=== PATIENT | female | born 1990 | race Caucasian/White ===

== ENCOUNTER 2017-10-23 16:48 | Emergency (ER) | payer BC ==
[2017-10-23] MEDS ORDERED: KETOROLAC 30 MG/ML INJ ONE (17:49)
[2017-10-23 18:34] LABS: Urine Bacteria >50 /HPF (<20); Urine Culture Reflex Order REFLEXED; Urine Mucus 2+ /HPF (NONE SEEN); Urine RBC 20-50 /HPF (NONE SEEN)
[2017-10-23 18:34] LABS: Urine Blood 2+ (NEG); Urine Glucose NEGATIVE (NEG); Urine Protein 3+ (NEG)
[2017-10-23] MEDS ORDERED: ACETAMINOPHEN 500 MG TAB ONE (19:06)
--- NOTE | 2017-10-23 19:29 | EDPHYS ---
Physician Documentation [facility] Name: Tania Garcia Age: 27 yrs Sex: Female : 1990 Arrival Date: 10/23/2017 Time: 16:49 Bed 23 Private MD: Jeancarlos Jones ED Physician Leonard Vásquez HPI: 10/23 19:21 This 27 yrs old Female presents to ER via Ambulatory with complaints of gs Possible Kidney Stone. 19:21 The patient presents with flank pain, bilaterally, urinary symptoms, dysuria, gs hesitancy, urgency. Onset: The symptoms/episode began/occurred yesterday, and became worse and became persistent. Modifying factors: The symptoms are alleviated by nothing, the symptoms are aggravated by nothing. Associated signs and symptoms: Pertinent negatives: fever, vomiting. Severity of symptoms: At their worst the symptoms were moderate, in the emergency department the symptoms are unchanged. The patient has experienced similar episodes in the past, a few times. 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 - Social history:: The patient lives at home, Smoking status: unknown. ROS: 19:21 All other systems are negative. gs Exam: 19:21 Head/Face: Normocephalic, atraumatic. Eyes: Pupils equal round and reactive to light, gs extra-ocular motions intact. Lids and lashes normal. Conjunctiva and sclera are non-icteric and not injected. Cornea within normal limits. Periorbital areas with no swelling, redness, or edema. ENT: Nares patent. No nasal discharge, no septal abnormalities noted. Tympanic membranes are normal and external auditory canals are clear. Oropharynx with no redness, swelling, or masses, exudates, or evidence of obstruction, uvula midline. Mucous membranes moist. Neck: Trachea midline, no thyromegaly or masses palpated, and no cervical lymphadenopathy. Supple, full range of motion without nuchal rigidity, or vertebral point tenderness. No Meningismus. Chest/axilla: Normal chest wall appearance and motion. Nontender with no deformity. No lesions are appreciated. Cardiovascular: Regular rate and rhythm with a normal S1 and S2. No gallops, murmurs, or rubs. Normal PMI, no JVD. No pulse deficits. Respiratory: Lungs have equal breath sounds bilaterally, clear to auscultation and percussion. No rales, rhonchi or wheezes noted. No increased work of breathing, no retractions or nasal flaring. Abdomen/GI: Soft, non-tender, with normal bowel sounds. No distension or tympany. No guarding or rebound. No evidence of tenderness throughout. Skin: Warm, dry with normal turgor. Normal color with no rashes, no lesions, and no evidence of cellulitis. MS/ Extremity: Pulses equal, no cyanosis. Neurovascular intact. Full, normal range of motion. Neuro: Awake and alert, GCS 15, oriented to person, place, time, and situation. Cranial nerves II-XII grossly intact. Motor strength 5/5 in all extremities. Sensory grossly intact. Cerebellar exam normal. Normal gait. 19:21 Constitutional: The patient appears alert, awake. 19:21 Back: CVA tenderness, that is moderate, is noted on the right. Vital Signs: 16:55 BP 133 / 81; Pulse 112; Resp 18; Temp 99.0(TE); Pulse Ox 98% on R/A; Weight 64.86 kg; hj Height 5 ft. 5 in. (165.10 cm); Pain 10/10; 19:20 BP 132 / 89; Pulse 96; Resp 16; Pulse Ox 100% on R/A; rk2 16:55 Body Mass Index 23.80 (64.86 kg, 165.10 cm) MDM: 17:34 Patient medically screened. 19:21 Differential diagnosis: nonspecific abdominal pain, urinary tract infection. Data reviewed: vital signs, nurses notes. Response to treatment: the patient's symptoms have markedly improved after treatment, and as a result, I will discharge patient. 10/23 17:34 Order name: Urine Microscopic Only; Complete Time: 19:29 10/23 18:05 Order name: Urine Dipstick--Ancillary (enter results) bd 10/23 18:05 Order name: Urine --Ancillary (enter results); Complete Time: 19:29 10/23 19:26 Order name: Urine Culture [facility] 10/23 17:34 Order name: Urine Test (obtain specimen); Complete Time: 17:49 10/23 17:34 Order name: Urine Dipstick-Ancillary (obtain specimen); Complete Time: 17:49 Administered Medications: 17:53 Drug: TORadol 30 mg Route: IM; Site: right deltoid; rk2 18:30 Follow up: Response: No adverse reaction; Pain is decreased rk2 19:08 Drug: Tylenol 1000 mg Route: PO; rk2 19:30 Follow up: Response: No adverse reaction rk2 Disposition: 10/23/17 19:29 Discharged to Home. Impression: Acute tubulo-interstitial nephritis. - Condition is Stable. - Discharge Instructions: Pyelonephritis, Adult. - Prescriptions for Keflex 500 mg Oral Capsule - take 2 capsule by ORAL route every 12 hours for 10 days; 40 capsule. Tylenol- Codeine #4 300-60 mg Oral Tablet - take 1 tablet by ORAL route every 6 hours As needed; 6 tablet. - Medication Reconciliation Form, Thank You Letter, Antibiotic Education, Prescription Opioid Use form. - Follow up: Private Physician; When: 2 - 3 days; Reason: Re-evaluation by your physician. Signatures: Dispatcher [employer] [facility] Foster Handley RN RN Leonard Vásquez MD MD Cassidy Singh RN RN rk2 Corrections: (The following items were deleted from the chart) 19:58 19:29 10/23/2017 19:29 Discharged to Home. Impression: Acute tubulo-interstitial rk2 nephritis. Condition is Stable. Forms are Medication Reconciliation Form, Thank You Letter, Antibiotic Education, Prescription Opioid Use. Follow up: Private Physician; When: 2 - 3 days; Reason: Re-evaluation by your physician. gs
--- NOTE | 2017-10-23 19:29 | ER ---
Nurse's Notes [facility] Name: Tania Garcia Age: 27 yrs Sex: Female : 1990 Arrival Date: 10/23/2017 Time: 16:49 Bed 23 Private MD: Jeancarlos Jones Diagnosis: Acute tubulo-interstitial nephritis Presentation: 10/23 16:51 Presenting complaint: Patient states: hx of kidney stones, i had a sharp pain on my hj lower back, reports nausea and vomiting; denies burning with urination; reports hot flashes;. Transition of care: patient was not received from another setting of care. Onset of symptoms was October 23, 2017. Initial Sepsis Screen: Does the patient meet any 2 criteria? No. Patient's initial sepsis screen is negative. Does the patient have a suspected source of infection? No. Patient's initial sepsis screen is negative. Care prior to arrival: None. 16:51 Method Of Arrival: Ambulatory 16:51 Acuity: RUTH 3 hj Triage Assessment: 16:55 General: Appears in no apparent distress. uncomfortable, Behavior is calm, cooperative, hj appropriate for age. Pain: Complains of pain in left low back and right low back. GI: Reports nausea, vomiting. 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 - Social history:: The patient lives at home, Smoking status: unknown. Screenin:55 Abuse screen: Denies threats or abuse. Nutritional screening: No deficits noted. rk2 Tuberculosis screening: No symptoms or risk factors identified. Fall Risk None identified. Assessment: 16:55 GI: Bowel sounds present X 4 quads. Abd is soft Abdomen is tender to palpation. hj 17:56 General: Appears in no apparent distress. well groomed, well developed, well nourished, rk2 Behavior is calm, cooperative. Pain: Complains of pain in right low back and left low back. Neuro: No deficits noted. Level of Consciousness is alert, obeys commands, Oriented to person, place, time, situation. Respiratory: Airway is patent Respiratory effort is even, unlabored. Derm: Skin is pink, warm \T\ dry. 19:20 Reassessment: Patient appears in no apparent distress at this time. No changes from rk2 previously documented assessment. Patient and/or family updated on plan of care and expected duration. Pain level reassessed. Patient denies pain at this time. Vital Signs: 16:55 BP 133 / 81; Pulse 112; Resp 18; Temp 99.0(TE); Pulse Ox 98% on R/A; Weight 64.86 kg; hj Height 5 ft. 5 in. (165.10 cm); Pain 10/10; 19:20 BP 132 / 89; Pulse 96; Resp 16; Pulse Ox 100% on R/A; rk2 16:55 Body Mass Index 23.80 (64.86 kg, 165.10 cm) ED Course: 16:49 Patient arrived in ED. rg4 16:50 Jeancarlos Jones MD is Private Physician. rg4 16:53 Triage completed. hj 16:55 Arm band placed on right wrist. hj 17:19 Leonard Vásquez MD is Attending Physician. 17:33 Cassidy Singh, AMBER is Primary Nurse. rk2 17:55 Patient has correct armband on for positive identification. Placed in gown. Bed in low rk2 position. Call light in reach. 19:53 No provider procedures requiring assistance completed. Patient did not have IV access rk2 during this emergency room visit. Administered Medications: 17:53 Drug: TORadol 30 mg Route: IM; Site: right deltoid; rk2 18:30 Follow up: Response: No adverse reaction; Pain is decreased rk2 19:08 Drug: Tylenol 1000 mg Route: PO; rk2 19:30 Follow up: Response: No adverse reaction rk2 Outcome: 19:29 Discharge ordered by . 19:53 Discharged to home ambulatory. rk2 19:53 Condition: good 19:53 Discharge instructions given to patient, Prescriptions given X 2. 19:58 Patient left the ED. rk2 Addendum: 10/26/2017 09:55 Addendum: Culture Results: Positive urine culture. Bacteria is resistant to, has a a5 intermediate sensitivity, or is not tested against prescribed antibiotics. Report given to DASHA for further evaluation and then to electrician radio for follow up with patient. Prescription called-in to pharmacy of choice. to [facility]. Signatures: Lacy Beasley, RN RN aa5 Foster Handley RN Meryl Riddle rg4 Leonard Vásquez MD MD gs Cassidy Singh RN RN rk2
== END 2017-10-23 19:58 | disposition home or self-care (01) ==
LOC: ER 16:48
DX: N10 Acute pyelonephritis (principal); E78.5 Hyperlipidemia, unspecified; F32.9 Major depressive disorder, single episode, unspecified
CPT/HCPCS: 81003; 81015; 81025; 87077; 87086; 87088; 87186; 96372; 99283